=== PATIENT | male | born 1955 | race Caucasian/White ===

== ENCOUNTER → 2016-09-21 | Day surgery (SDC) | payer BC ==
[~2016-09-21] MED LIST: ASPI-482 PO; DORZ10DR7; FENTANYL PF 100 MCG/2 ML VIAL. IV PRN; FLUT16SP; HYDROMORPHONE 2 MG/ML VIAL. IV PRN; IV RINGERS,LACTATED 1000ML 1,000 ML IV SCH; LATA2.5D3; LIDOCAINE 1% 1 ML SYRINGE. ID PRN; LISI1TAB5; MORPHINE SULFATE 2 MG/ML DISP.SYRIN. IV PRN; ONDANSETRON PF 4 MG/2 ML VIAL. IV PRN; PROCHLORPERAZINE 10 MG/2 ML VIAL. IV PRN; PROPOFOL 40 ML IV ONE; TEST200V3
--- NOTE | 2016-09-21 12:58 | PDOC1 ---
History and Physical Date of Admission Date of Admission DATE: 09/21/16 TIME: 12:51 Identification/Chief Complaint Chief Complaint Colon cancer screening. Source Source: Chart review, Patient History of Present Illness History of Present Illness 60 y/o male referred to us for CRC screening. No prior screening of any sort. Variable stools historically and occasional heartburn treated with prn antacids , otherwise w/o complaints. GIFH positive for polyps in sibling, colon cancer in maternal grandfather who also had Crohn's. A sibling had Crohn's as well. Past Medical History Cardiovascular: HTN, Hyperlipidemia Musculoskeletal: Osteoarthritis Past Surgical History Past Surgical History Denies Family History Family History: Cancer (breast), Coronary Artery Disease, Diabetes, Hypertension Social History Smoke: <1 pack per day ALCOHOL: occassional Drugs: None Current Medications Current Medications Current Medications Ondansetron HCl (Zofran) 4 mg PRN Q6HRS PRN IV Nausea; Start 09/21/16 at 07:00; Stop 09/22/16 at 06:59 Fentanyl Citrate (Fentanyl 2ml Vial) 25 mcg PRN Q5MIN PRN IV MILD PAIN; Start 09/21/16 at 07:00; Stop 09/22/16 at 06:59 Fentanyl Citrate (Fentanyl 2ml Vial) 50 mcg PRN Q5MIN PRN IV MODERATE PAIN; Start 09/21/16 at 07:00; Stop 09/22/16 at 06:59 Morphine Sulfate 1 mg 1 mg PRN Q10MIN PRN IV SEVERE PAIN; Start 09/21/16 at 07: 00; Stop 09/22/16 at 06:59 Lactated Ringer's (Iv Lactated Ringers) 1,000 ml @ 30 mls/hr Q24H IV Last administered on 09/21/16t 12:46; Start 09/21/16 at 07:00; Stop 09/21/16 at 18:59 Lidocaine HCl 2 ml 1X PRN PRN ID IV START; Start 09/21/16 at 07:00; Stop at 06:59 Hydromorphone HCl (Dilaudid) 0.5 mg PRN Q10MIN PRN IV SEVERE PAIN, Second choice; Start 09/21/16 at 07:00; Stop 09/22/16 at 06:59 Prochlorperazine Edisylate 5 mg 5 mg PACU PRN PRN IV NAUSEA; Start 09/21/16 at 07:00; Stop 09/22/16 at 06:59 Propofol (Diprivan) 40 ml @ As Directed STK-MED ONCE IV ; Start 09/21/16 at 12:37 ; Stop 09/21/16 at 12:38; Status DC Active Scripts Active Reported Aspir 81 (Aspirin) 81 Mg Tablet.dr 1 Tab PO DAILY Fluticasone Propionate Nasal [place] (Fluticasone Propionate) 16 Gm [place].susp Latanoprost 2.5 Ml Drops Dorzolamide-Timolol Eye Drops (Dorzolamide Hcl/Timolol Maleat) 10 Ml Drops Lisinopril-Hctz 20-12.5 Mg Tab (Lisinopril/Hydrochlorothiazide) 1 Each Tablet Testosterone Cypionate 200 Mg/1 Ml Vial Allergies Allergies: Coded Allergies: No Known Drug Allergies (Unverified , 09/21/16) ROS Review of System 10-point review otherwise negative. Physical Exam General: Alert, Oriented X3, Cooperative, No acute distress Lungs: Clear to auscultation Heart: S1S2, RRR, no gallops, no murmurs Abdomen: Normal bowel sounds, Soft, No tenderness, No hepatosplenomegaly, No masses Rectal Exam: deferred (to procedure) Extremities: No cyanosis, No edema Skin: No significant lesion Neuro: Normal speech, Strength at 5/5 X4 ext, Normal tone, Sensation intact, Cranial nerves 3-12 NL, Reflexes 2+ Psych/Mental Status: Mental status NL, Mood NL Vitals Vitals Vital Signs Date Time Temp Pulse Resp B/P Pulse Ox O2 Delivery O2 Flow Rate FiO2 09/21/16 12:38 98.2 55 18 96 98.2 VTE Prophylaxis Ordered VTE Prophylaxis Devices: No VTE Pharmacological Prophylaxi: No Assessment/Plan Assessment/Plan IMP: FH polyps, at above-average risk for same. PLAN: Screening colonoscopy. LAILA WEIR MD Sep 21, 2016 12:58
--- NOTE | 2016-09-21 13:30 | PDOC4 ---
PROCEDURE Procedure colonoscopy with biopsies/polypectomy Indication: screening. Meds: per anesthesia Findings: DEQUAN normal. 8-10 mm pedunculated polyp, mid-sigmoid, snared and recovered. 3, 3-4mm polyps, rectum, biopsied off. Internal hemorrhoids noted. TI normal as was rest of exam. IMP: polyps IH's REC: await path. No ASA, NSAIDs for 2 weeks. Resume home meds and diet. f/u 2 weeks. Repeat exam pending path. LAILA WEIR MD Sep 21, 2016 13:30
[2016-09-21 14:01] VITALS: BP 181/88
--- NOTE | 2016-09-22 13:16 | PATHOLOGY ---
PATHOLOGY REPORT * * * * * * * * FINAL DIAGNOSIS: A. Colon biopsy, mid sigmoid polyp: - Hyperplastic polyp showing focal recent and remote hemorrhage. B. Colorectal biopsies, rectal polyps: - Hyperplastic polyps. COMMENT: There is no high grade dysplasia or evidence of malignancy. (JPM:all; d/t: 09/22/2016) REPORT ELECTRONICALLY SIGNED BY: Damaso Liz M.D. DATE/TIME: 09/22/2016 13:07 * * * * * * * * GROSS PATHOLOGY: A. Received in formalin labeled "Nisha Saldivar, sigmoid polyp mid-sigmoid," is a 0.9 x 0.8 x 0.5 cm polypoid piece of mehta soft tissue. The margin is inked and the tissue is sectioned perpendicular to the margin and submitted in its entirety in cassette A1. B. Received in formalin labeled "Nisha Saldivar, biopsy rectal polyps," are three segments of mehta soft tissue measuring 0.8 x 0.7 x 0.1 cm in aggregate dimensions and ranging from 0.4 to 0.5 cm in maximum dimension. The specimen is submitted entirely in cassette B1. (CAA; 09/21/2016) INITIAL CPT CODE(S): A; 95707 B; 22848 Professional services performed [place] [address] Technical services performed by [facility] at [address] [place] [address], [facility] [address], [place] [address]. SPECIMEN(S) RECEIVED: A.Sigmoid polyp-mid sigmoid B.Biopsy rectal polyps CLINICAL HISTORY: Heme + stool; sigmoid polyp, rectal polyp PATIENT: NISHA SALDIVAR /AGE: 311/15/1955 (Age: 60) PATIENT #: [id number] ALT CASE #: SPECIMEN COLLECTION DATE: 09/21/2016 SPECIMEN RECEIVED DATE: 09/21/2016 [facility] - [id number] [place] [address] - PHONE: [phone] * * * END OF REPORT * * *
== END | disposition home or self-care (01) ==
LOC: ENDOS 12:03
PROVIDERS: ATTEND Internal Medicine Gastroenterology
DX: Z12.11 Encounter for screening for malignant neoplasm of colon (principal); K63.5 Polyp of colon; K62.1 Rectal polyp; Z83.71 Family history of colonic polyps; K64.8 Other hemorrhoids; H40.9 Unspecified glaucoma; E78.00 Pure hypercholesterolemia, unspecified; I10 Essential (primary) hypertension; F10.99 Alcohol use, unspecified with unspecified alcohol-induced disorder; F17.200 Nicotine dependence, unspecified, uncomplicated
CPT/HCPCS: 45380; 45385; J2704; 88305